=== PATIENT | female | born 1940 | race Hispanic/Latino ===

== ENCOUNTER 2017-02-07 10:22 | Outpatient (CLI) | payer MEDICARE, OTHER ==
--- NOTE | 2017-02-07 11:01 | Mammography Report ---
Screening right mammogram: The patient is post left mastectomy. Routine views of the right breast demonstrates a generally fatty replaced pattern. Unremarkable parenchymal structures. No interval change compared to prior examination in December 2011. Impression: Stable mammogram. Recommendation: Annual mammogram followup. BI-RADS CATEGORY: 1 = Negative ACR BI-RADS MAMMOGRAPHIC CODES: 0 = Needs additional imaging evaluation; 1 = Negative; 2 = Benign; 3 = Probably benign; 4 = Suspicious; 5 = Malignant; 6 = Known biopsy-proven malignancy COMMENT: 1. Dense breast tissue, i.e., adenosis, fibrocystic changes, etc., may obscure an underlying neoplasm. 2. Approximately 10% of cancers are not detected with mammography. 3. A negative mammography report should not delay biopsy if a clinically suspicious mass is present. The
== END 2017-02-07 10:23 | disposition home or self-care (01) ==
LOC: MAMMO 10:22
PROVIDERS: ATTEND Family Medicine
DX: Z12.31 Encounter for screening mammogram for malignant neoplasm of breast (principal)
CPT/HCPCS: G0202-52

== ENCOUNTER 2018-10-21 10:52 | Outpatient (CLI) | payer MEDICARE, OTHER ==
--- NOTE | 2018-10-21 13:07 | Mammography Report ---
RIGHT DIGITAL SCREENING MAMMOGRAM with CAD: 10/21/18 10:52:00 CLINICAL: Routine screening. Breast cancer survivor status post left mastectomy. COMPARISON:02/07/17 and 12/23/11 FINDINGS: The breast is almost entirely fatty.No mass, architectural distortion or suspicious calcifications. IMPRESSION: No mammographic evidence of malignancy. BI-RADS CATEGORY: 1 - - Negative RECOMMENDATION: Routine screening in one year. ACR BI-RADS MAMMOGRAPHIC CODES: 0 = Needs additional imaging evaluation; 1 = Negative; 2 = Benign; 3 = Probably benign; 4 = Suspicious; 5 = Malignant; 6 = Known biopsy-proven malignancy COMMENT: 1. Dense breast tissue, i.e., adenosis, fibrocystic changes, etc., may obscure an underlying neoplasm. 2. Approximately 10% of cancers are not detected with mammography. 3. A negative mammography report should not delay biopsy if a clinically suspicious mass is present. COMMENT: Patient follow-up letters are generated via our [employer] application.
== END 2018-10-21 10:53 | disposition home or self-care (01) ==
LOC: MAMMO 10:52
PROVIDERS: ATTEND Family Medicine
DX: Z12.31 Encounter for screening mammogram for malignant neoplasm of breast (principal)

== ENCOUNTER 2018-11-30 08:46 | Outpatient (CLI) | payer MEDICARE, OTHER ==
[2018-11-30 09:05] LABS: Hematocrit 41.4 % (30.3-42.9); Hemoglobin 14.3 gm/dl (10.1-14.3); Mean Corpuscular HGB Conc 35 % (30-34); Mean Corpuscular Volume 86 fl (79-97); Platelet Count 306 K/mm3 (140-440); Red Blood Count 4.82 M/mm3 (3.65-5.03); Red Cell Distribution Width 15.3 % (13.2-15.2)
[2018-11-30 09:40] LABS: Alanine Aminotransferase 10 units/L (7-56); Albumin 4.2 g/dL (3.9-5); BUN/Creatinine Ratio 16; Blood Urea Nitrogen 11 mg/dL (7-17); Calcium 9.5 mg/dL (8.4-10.2); Chol/HDL Ratio 2.79 %; HDL Cholesterol 54 mg/dL (40-59); Hemolysis Index 5; LDL Cholesterol,Direct 74 mg/dL (50-130)
--- NOTE | 2018-11-30 10:47 | Cat Scan Report ---
CT CHEST WITH CONTRAST: HISTORY: Lobar pneumonia. COMPARISON: No relevant comparisons at this facility. TECHNIQUE: Helical CT in 1.25mm intervals following IV contrast. Sagittal and coronal reformatted images. FINDINGS: Thyroid gland: Normal. Tracheobronchial tree: Normal. Esophagus: Normal. A small hiatal hernia is identified. Heart: Normal. Pericardium: Normal. Mediastinum: No evidence for mediastinal mass, adenopathy or inflammation. There are mild scattered calcific plaques in the thoracic aorta. No aneurysm or dissection. The central pulmonary arteries are grossly normal. Lung [place]: Mild centrilobular emphysematous changes are suspected in the upper lobes. There is also mild septal thickening in the subpleural regions of both lungs which could represent minimal fibrotic changes. No advanced fibrosis or honeycombing. No evidence for suspicious nodule or infiltrate. Pleural Spaces: Normal. Musculoskeletal: Mild osteopenia and mild thoracic spondylosis. No fracture or suspicious bony lesion is detected. Left mastectomy changes and left axillary lymph node dissection changes are noted. IMPRESSION: No acute cardiopulmonary process. No evidence for lobar pneumonia. Mild emphysematous changes. Mild chronic interstitial changes. Small hiatal hernia. Mild osteopenia and thoracic spondylosis. Surgical changes as described. No evidence for metastatic or recurrent disease in the chest.
== END 2018-11-30 08:47 | disposition home or self-care (01) ==
LOC: CT 08:46
PROVIDERS: ATTEND Internal Medicine
DX: J43.9 Emphysema, unspecified (principal); K44.9 Diaphragmatic hernia without obstruction or gangrene; M47.814 Spondylosis without myelopathy or radiculopathy, thoracic region; M85.88 Other specified disorders of bone density and structure, other site; Z98.890 Other specified postprocedural states; R79.89 Other specified abnormal findings of blood chemistry
CPT/HCPCS: 36415; 36600; 71260; 80053; 80061; 82803; 84436; 84443; 85027; Q9967